=== PATIENT | male | born 1985 | race Caucasian/White ===

== ENCOUNTER 2016-04-30 15:18 | Emergency (ER) | payer BC, OTHER ==
[2016-04-30 15:24] VITALS: TEMP 97.8; BMI 35.5
[2016-04-30] MEDS ORDERED: NS 1,000 ML IV ONE (15:34)
[2016-04-30] MEDS ORDERED: ONDANSETRON HCL 4 MG/2 ML VIAL IV ONE (15:34)
[2016-04-30] MEDS ORDERED: MORPHINE 4 MG/ML INJECTION IV ONE (15:34)
--- NOTE | 2016-04-30 15:40 | EDPRACDOC ---
- General Information Chief Complaint: Male Urogenital Problems Stated Complaint: ? KIDNEY STONE VOMITING HX KIDNEY STONES Time Seen by Provider: 04/30/16 15:33 Information Source: Patient Mode Of Arrival: Car Home Medications: Home Medications Ketorolac Tromethamine 10 mg PO Q8H PRN #15 tab 04/30/16 Oxycodone Immediate Release [Oxycodone Immediate Release (OxyIR)] 5 - 10 mg PO Q6H PRN #30 tab 04/30/16 Promethazine [Phenergan] 25 mg PO Q4-6H PRN #15 tab 04/30/16 Tamsulosin HCl [Flomax] 0.4 mg PO QAM #15 cap 04/30/16 Allergies/Adverse Reactions: Allergies Allergy/AdvReac Type Severity Reaction Status Date / Time No Known Allergies Allergy Verified 04/30/16 15:36 - History of Present Illness Onset: 1 day HPI: Pt c/o L flank pain with n/v x 1 day. Denies fever, changes in bowel or bladder , penile discharge, rash. Hx kidney stones. Pain Location: Reports: Left, Flank Pain Radiates To: Reports: None Pain Caused By: Reports: Spontaneous Circumstances: Reports: Unknown Relevant History: Reports: Urolithiasis Pain Severity: Reports: Moderate Pain Quality: Reports: Sharp, Stabbing Worsened By: Reports: Nothing Associated Signs and Symptoms: Reports: Nausea, Vomiting ED Past Medical History - History Reviewed Yes Nurses notes reviewed and agree except as marked - Patient Medical History Psychological History: Denies: Depression Systemic History: Denies: Cancer - Social Medical History Smoking Status: Heavy tobacco smoker (5 or more cigarettes/day or daily pipe/ cigar) ETOH: None Substance Abuse: None EDM Review of Systems - Review of Systems Constitutional: No Symptoms Reported. negative: Fever, Chills, Weakness, Fatigue, Loss of Appetite Ears: No Symptoms Reported. negative: Pain, Hearing Loss, Drainage, Ear Pulling Throat: No Symptoms Reported. negative: Pain, Swelling Nose: No Symptoms Reported. negative: Congestion, Bleeding, Discharge, Injection, Swelling, Deformity, Ecchymosis, Tender, Abrasion, Laceration Mouth: No Symptoms Reported. negative: Pain, Drooling Respiratory: No Symptoms Reported. negative: Cough, Brassy Cough, Barky Cough, Shortness of Breath, Wheezing, Hemoptysis Cardiovascular: No Symptoms Reported. negative: Chest Pain, Palpitations, Syncope, Edema, Orthopnea, PND, Skin Mottling, Cyanosis Gastrointestinal: Nausea, Vomiting Genitourinary: Flank Pain Neurological: No Symptoms Reported. negative: Headache, Dizziness, Seizure, Numbness, Weakness, Speech Difficulty, Gait Difficulty Musculoskeletal: Back. negative: No Symptoms Reported, Arm, Ankle, Chestwall, Elbow, Forearm, Femur, Foot, Hand, Hip, Knee, Leg, Neck, Pelvis, Ribs, Shoulder , Wrist Integumentary: No Symptoms Reported. negative: Itching, Rash, Bruising, Wound Allergic/Immunologic: No Symptoms Reported. negative: Hives, Itching Hematologic: No Symptoms Reported. negative: Lymphadenopathy, Easy Bruising, Easy Bleeding Psychiatric: No Symptoms Reported. negative: Anxiety, Depression, Hallucinations, Insomnia, Suicidal - Physical Exam Constitutional: Alert (Awake) Oriented to: Time, Person, Place Last recorded Vital Signs: Last Vital Signs Temp 97.8 F 04/30/16 15:22 Pulse 94 04/30/16 15:22 Resp 20 04/30/16 15:22 BP 167/78 04/30/16 15:22 Pulse Ox 97 04/30/16 15:22 Oxygen Pulse Oxygen Saturation 97 O2 Device Room Air Oxygen Flow Rate Fraction of Inspired Oxygen ( FIO2) - HEENT Head: Normal ( normocephalic) Eye Exam: Normal (PERRL, EOMI, Sclera white) Neck: Normal (FROM, trachea at midline) - Respiratory/Cardiovascular Respiratory: Normal - CTA (BBS clear to auscultation without adventitious sounds ) Cardiovascular: Normal (RRR without murmur, gallop or rub) - GI Auscultation: Normal (NABS) Palpation: Normal (Soft,No rebound or guarding, non distended) Tenderness: Non tender - Musculoskeletal Back: CVA Tenderness (L) Extremities: Normal (Normal tone, Pulses 2+ No cyanosis or edema, FROM) - Integumentary Skin: Normal, Warm, Dry Lymphatics: Normal (no adenopathy) - Neurologic Memory Impaired: Normal Motor Function: Normal (Normal tone, Pulses 2+ No cyanosis or edema, FROM) Mood Description: Normal Perception: Normal ED Back Exam - Neurologic Motor Deficit: None (strength 5/5, sensation nl) Reflexes: Normal (CN II-X11 intact) - Musculoskeletal Cervical: Normal Thoracic: Normal Lumbar: Normal Midline: Normal Paraspinous: Normal Straight Leg Raise: Negative Pelvis: Normal - Differential Diagnosis Musculoskeletal pain, Other (diverticulitis), Pyelonephritis, Strain, Urolithiasis, Urinary tract infection - Re-evaluation Re-evaluation 1 Re-evaluation Time: 16:53 (pain returned) - Results 04/30/16 15:30 04/30/16 15:30 - Diagnostic Imaging Abdomen Image interpreted by: Radiologist IMPRESSION: Nonobstructive right renal calculus. Minimal left hydroureteronephrosis secondary to 4 mm distal left ureteral calculus. - Departure Disposition: Home Condition: Stable Final Diagnosis: Left ureteral calculus Instructions: Kidney Stones (ED) Education/Counseling Given To: Patient Education/Counseling Given Regarding: Diagnosis, Treatment, Follow Up Referrals: None,No Provider [Primary Care Provider] - One Week Rehan Castro MD [Staff Physician] - One Week Prescriptions: New Ketorolac Tromethamine 10 mg PO Q8H PRN #15 tab PRN Reason: Pain Oxycodone Immediate Release [Oxycodone Immediate Release (OxyIR)] 5 - 10 mg PO Q6H PRN #30 tab PRN Reason: Pain Promethazine [Phenergan] 25 mg PO Q4-6H PRN #15 tab PRN Reason: Nausea/Vomiting Tamsulosin HCl [Flomax] 0.4 mg PO QAM #15 cap Additional Instructions: Increase fluids. Strain urine. Return or worse or different symptoms.
[2016-04-30 15:56] LABS: AUTOMATED BASOPHIL 1.2 % (0-2); AUTOMATED EOSINOPHIL 1.6 % (0-5); AUTOMATED LYMPH 18.9 % (17-44); AUTOMATED NEUTROPHIL 69.3 % (45-76); MPV 9.1 fL (7.4-10.4)
[2016-04-30 16:00] LABS: LEUKOCYTES/URINE NEG (NEGATIVE); NITRITE/URINE NEG (NEGATIVE); RBC/URINE TNTC (0-2); URINE OCCULT BLOOD 3+ (NEG/TRACE); WBC/URINE 0-2 (0-2)
[2016-04-30] MEDS ORDERED: NS 1,000 ML IV SCH (16:00)
[2016-04-30 16:06] LABS: BLOOD UREA NITROGEN 14 MG/DL (9-20); CALCIUM 9.6 MG/DL (8.4-10.2); CALCULATED OSMOLALITY 274 MOs/Kg (270-290); CHLORIDE 105 mEq/L (98-107); GLUCOSE 100 mg/dL (70-99); SODIUM LEVEL 142 mEq/L (137-146); TOTAL PROTEIN 7.6 G/DL (6.3-8.2)
[2016-04-30] MEDS ORDERED: HYDROmorphone 1 MG INJECTION IV ONE ×2 (16:16→16:53)
--- NOTE | 2016-04-30 16:43 | DIRPT ---
CLINICAL DATA: Acute left flank pain. EXAM: CT ABDOMEN AND PELVIS WITHOUT CONTRAST TECHNIQUE: Multidetector CT imaging of the abdomen and pelvis was performed following the standard protocol without IV contrast. COMPARISON: None. FINDINGS: Visualized lung bases are unremarkable. No significant osseous abnormality is noted. No gallstones are noted. No focal abnormality is noted in the liver, spleen or pancreas on these unenhanced images. Adrenal glands appear normal. Nonobstructive calculus is noted in lower pole collecting system of right kidney. Minimal left hydroureteronephrosis is noted secondary to 4 mm distal left ureteral calculus. The appendix appears normal. There is no evidence of bowel obstruction. No abnormal fluid collection is noted. Urinary bladder is decompressed. No significant adenopathy is noted. IMPRESSION: Nonobstructive right renal calculus. Minimal left hydroureteronephrosis secondary to 4 mm distal left ureteral calculus. Electronically Signed By: Trev Chamorro Jr, M.D. On: 04/30/2016 16:41
[2016-04-30] MEDS ORDERED: KETOROLAC TROMETH 30 MG/ML VIAL IV ONE (16:52)
[2016-04-30 17:24] VITALS: BP 136/69; PULSE 78
== END 2016-04-30 17:46 | disposition home or self-care (01) ==
LOC: EDMC 15:18
DX: N20.1 Calculus of ureter (principal)
CPT/HCPCS: 36415; 74176; 80053; 81001; 85025; 96361; 96374; 96375; 96376; 99284; J1170; J1885; J2270; J2405